=== PATIENT | female | born 1985 | race African-American/Black ===

== ENCOUNTER 2018-10-27 22:40 | Emergency (ER) | payer SELFPAY ==
[~2018-10-27] VITALS: Ht 162.6 cm; Wt 97.9 kg
[~2018-10-27 22:40] MED LIST: NAP5EC
[2018-10-27 23:13] VITALS: BP 121/75
== END 2018-10-28 00:45 | disposition left against medical advice (07) ==
LOC: ER 22:40
DX: M54.5 Low back pain (principal); Z53.21 Procedure and treatment not carried out due to patient leaving prior to being seen by health care provider